=== PATIENT | female | born 1990 ===

== ENCOUNTER 2020-07-13 09:36 | Emergency (ER) | payer OTHER ==
[~2020-07-13] VITALS: Ht 157.5 cm; Wt 56.7 kg
== END 2020-07-13 11:27 | disposition home or self-care (01) ==
LOC: ER 09:36
DX: S61.031A Puncture wound without foreign body of right thumb without damage to nail, initial encounter (principal); W46.1XXA Contact with contaminated hypodermic needle, initial encounter; Y93.89 Activity, other specified; Y92.234 Operating room of hospital as the place of occurrence of the external cause; Y99.8 Other external cause status

== ENCOUNTER → 2021-05-19 | Outpatient (CLI) | payer OTHER | END | disposition home or self-care (01) | LOC: LAB 12:01 | PROVIDERS: ATTEND Emergency Medicine Pediatric Emergency Medicine | DX: Z03.818 Encounter for observation for suspected exposure to other biological agents ruled out (principal) ==

== ENCOUNTER 2021-07-18 08:00 | Outpatient (CLI) | payer OTHER | END 2021-07-18 08:30 | disposition home or self-care (01) | LOC: PPH VACUNA 08:00 | PROVIDERS: ATTEND Emergency Medicine Pediatric Emergency Medicine | DX: Z23 Encounter for immunization (principal) ==

== ENCOUNTER 2021-12-14 09:41 | Emergency (ER) | payer OTHER ==
[~2021-12-14] VITALS: Ht 157.5 cm; Wt 56.7 kg
== END 2021-12-14 12:22 | disposition home or self-care (01) ==
LOC: ER 09:41
DX: R42 Dizziness and giddiness (principal)

== ENCOUNTER 2022-06-27 08:00 | Outpatient (CLI) | payer OTHER | END 2022-06-27 08:05 | disposition home or self-care (01) | LOC: PPH VACUNA 08:00 | PROVIDERS: ATTEND Emergency Medicine Pediatric Emergency Medicine | DX: Z23 Encounter for immunization (principal) ==

== ENCOUNTER 2023-02-19 13:15 | Outpatient (CLI) | payer OTHER | END 2023-02-19 13:19 | disposition home or self-care (01) | LOC: SONOGRAMA 13:15 | PROVIDERS: ATTEND Anesthesiology | DX: N60.11 Diffuse cystic mastopathy of right breast (principal); N60.12 Diffuse cystic mastopathy of left breast ==

== ENCOUNTER 2023-07-09 10:30 | Outpatient (CLI) | payer OTHER | END 2023-07-09 10:40 | disposition home or self-care (01) | LOC: PPH VACUNA 10:30 | PROVIDERS: ATTEND Emergency Medicine Pediatric Emergency Medicine | DX: Z23 Encounter for immunization (principal) ==

== ENCOUNTER → 2023-10-31 13:31 | Outpatient (CLI) | payer OTHER ==
[2023-10-31 15:43] LABS: RH NEGATIVE
== END | disposition home or self-care (01) ==
LOC: LAB 13:31
PROVIDERS: ATTEND Obstetrics & Gynecology
DX: O09.71 Supervision of high risk pregnancy due to social problems, first trimester (principal)